=== PATIENT | female | born 1990 | race Native Hawaiian/Other Pacific Islander ===

== ENCOUNTER 2021-07-31 00:43 | Emergency (ER) | payer OTHER ==
[~2021-07-31] VITALS: Ht 152.4 cm; Wt 78.9 kg
[2021-07-31 00:43] VITALS: TEMP 98
[2021-07-31 00:59] LABS: PLATELET COUNT 234 K/uL (152-353)
[2021-07-31 01:02] LABS: POTASSIUM 3.8 mmol/L (3.6-5.2)
[2021-07-31 02:31] VITALS: BP 98/63
[2021-07-31] MEDS ORDERED: HYDR50CA21 PO (09:41)
[2021-07-31] MEDS ORDERED: HALO50IN4 IM (09:42)
[2021-07-31] MEDS ORDERED: OXCARBAZEPIN600 MG PO (09:43)
[2021-07-31] MEDS ORDERED: QUETIAPINE100 MG PO (09:44)
[2021-07-31] MEDS ORDERED: ASPERCREME LIDOCA41 EX (09:46)
[2021-07-31] MEDS ORDERED: ASPIRIN 81 LOW81 MG PO (09:47)
[2021-07-31] MEDS ORDERED: MIRALAX17 GM PO (09:48)
[2021-07-31] MEDS ORDERED: TRAMADOL HYDROC50 MG PO (09:50)
[2021-07-31] MEDS ORDERED: TYLENOL325 MG PO (09:51)
== END 2021-07-31 02:31 | disposition still patient (30) ==
LOC: ED 00:43
PROVIDERS: Hospitalist
DX: F25.8 Other schizoaffective disorders (principal); R46.89 Other symptoms and signs involving appearance and behavior; Z11.52 Encounter for screening for COVID-19; Z04.6 Encounter for general psychiatric examination, requested by authority
CPT/HCPCS: 36415; 80053; 84702; 85027; 87635; 93005; 99283; U0003

== ENCOUNTER 2022-02-04 16:23 | Emergency (ER) | payer OTHER ==
[~2022-02-04] VITALS: Ht 152.4 cm; Wt 77.1 kg
[~2022-02-04 16:23] MED LIST: ASPERCREME LIDOCA41 EX; ASPI81TA4 PO; ASPIRIN 81 LOW81 MG PO; HALO50IN4 IM; HYDR25CA25 PO; HYDR50CA21 PO; MIRALAX 17GM PAK PO; MIRALAX17 GM PO; OXCARBAZEPIN300 MG PO; OXCARBAZEPIN600 MG PO; QUET100T2 PO; QUETIAPINE100 MG PO; TRAMADOL HYDROC50 MG PO; TYLENOL325 MG PO
[2022-02-04 16:30] VITALS: BP 104/67; TEMP 98
[2022-02-04 17:02] LABS: PLATELET COUNT 272 K/uL (152-353)
[2022-02-04 17:10] LABS: POTASSIUM 3.6 mmol/L (3.6-5.2)
[2022-02-04] MEDS ORDERED: HALO50IN4 IM (20:42)
[2022-02-04] MEDS ORDERED: LEXAPRO20 MG PO (20:43)
[2022-02-04] MEDS ORDERED: LIDOCAINE45 EX (20:44)
[2022-02-04] MEDS ORDERED: POLYETHYLE17 GM/SCO1 PO (20:45)
[2022-02-04] MEDS ORDERED: BUSPIRONE10 MG PO (20:46)
[2022-02-04] MEDS ORDERED: HYDR25CA25 PO (20:47)
[2022-02-04] MEDS ORDERED: RISP0.5T2 PO (20:47)
[2022-02-04] MEDS ORDERED: OXCARBAZEPIN600 MG PO (20:48)
[2022-02-04] MEDS ORDERED: PULMICORT90 MCG/ACT INH (20:50)
[2022-02-04] MEDS ORDERED: TRAMADOL HYDROC50 MG PO (20:50)
[2022-02-04] MEDS ORDERED: TYLENOL325 MG PO (20:51)
== END 2022-02-04 18:30 | disposition still patient (30) ==
LOC: ED 16:23
PROVIDERS: Emergency Medicine
DX: R46.89 Other symptoms and signs involving appearance and behavior (principal); G80.9 Cerebral palsy, unspecified; Z11.52 Encounter for screening for COVID-19; Z04.6 Encounter for general psychiatric examination, requested by authority
CPT/HCPCS: 80053; 81002; 85027; 87635; 93005; 99283; U0003